=== PATIENT | female | born 1965 | race Caucasian/White ===

== ENCOUNTER → 2019-05-01 10:53 | Outpatient (CLI) | payer OTHER | END | disposition home or self-care (01) | LOC: D.NM 10:53 | PROVIDERS: ATTEND Internal Medicine Gastroenterology | DX: R10.13 Epigastric pain (principal); R11.2 Nausea with vomiting, unspecified; R12 Heartburn ==

== ENCOUNTER → 2019-05-17 08:59 | Outpatient (CLI) | payer OTHER | END | disposition home or self-care (01) | LOC: D.NM 08:59 | PROVIDERS: ATTEND Internal Medicine Gastroenterology | DX: R10.13 Epigastric pain (principal); R11.2 Nausea with vomiting, unspecified ==